=== PATIENT | female | born 1995 | race Caucasian/White ===

== ENCOUNTER 2020-05-26 13:32 | Outpatient (CLI) | payer OTHER, SELFPAY ==
--- NOTE | ~2020-05-26 | US_ITS ---
EXAMINATION: US pelvic complete w TV EXAM DATE: 05/26/2020 14:35 INDICATION: IUD placement. Pelvic pain. TECHNIQUE: Pelvic transabdominal and transvaginal sonogram was performed. There are multiple graysca le and Doppler images available for interpretation. There is no prior study for comparison. FINDINGS: Uterus measures 8.7 x 3.6 x 4.2 cm, with IUD centrally located inside the endometrial cavi ty. Endometrial stripe measures a mm, within normal limits. There are nabothian cysts. There is no free pelvic fluid. Right adnexa: The ovary measures 3.5 x 2.8 x 2.9 cm and is morphologically normal. Ovarian vascular f low confirmed. Left adnexa: The ovary measures 2.4 x 1.5 x 1.5 cm and is morphologically normal. Ovarian vascular fl ow confirmed. IMPRESSION: 1. IUD in position. Reviewed, dictated and finalized at location A. IMPRESSION: 1. IUD in position.
== END 2020-05-26 13:33 | disposition home or self-care (01) ==
PROVIDERS: PCP Internal Medicine; Visit Provider Obstetrics & Gynecology
DX: Z30.430 Encounter for insertion of intrauterine contraceptive device (principal)
CPT/HCPCS: 76830; 76856